=== PATIENT | female | born 1935 | race Caucasian/White ===

== ENCOUNTER 2022-11-15 18:20 | Emergency (ER) | payer MEDICARE, BC ==
[~2022-11-15] VITALS: Ht 149.9 cm; Wt 52.2 kg
[2022-11-15] MEDS ORDERED: EUTHYROX75 MC1 PO (18:42)
[2022-11-15] MEDS ORDERED: AMLODIPINE BESYL5 MG PO (18:42)
[2022-11-15] MEDS ORDERED: ALBU90OI INH (18:43)
[2022-11-15] MEDS ORDERED: METO100ER PO (18:43)
[2022-11-15 21:18] LABS: Source, Urine Clean Catch
[2022-11-15 21:21] LABS: Appearance, Urine Clear (Clear); Bilirubin, Urine Neg (Neg); Blood, Urine Neg (Neg); Glucose Qualitative, Urine Neg (Neg); Ketones, Urine Neg (Neg); Leukocyte Esterase, Urine Neg (Neg); Nitrite, Urine Neg (Neg); Protein, Urine Neg (Neg); Urobilinogen, Urine NORM (Normal); pH, Urine 6.5 (5.0-8.0)
[2022-11-15 21:24] LABS: Color, Urine Pale Yellow (P-Yellow)
[2022-11-15] MEDS ORDERED: ASPI81CH PO (21:52)
== END 2022-11-15 22:05 | disposition home or self-care (01) ==
LOC: ER 18:20
PROVIDERS: Emergency Medicine
DX: G45.9 Transient cerebral ischemic attack, unspecified (principal); I10 Essential (primary) hypertension; E03.9 Hypothyroidism, unspecified; Z79.899 Other long term (current) drug therapy
CPT/HCPCS: 70450; 81003; A9270

== ENCOUNTER 2024-04-21 20:09 | Inpatient (IN) | payer MEDICARE, BC ==
[~2024-04-21] VITALS: Ht 160 cm; Wt 42.6 kg
[~2024-04-21 20:09] MED LIST: ALBU90OI INH; AMLODIPINE BESYL5 MG PO; ASPI81CH PO; EUTHYROX75 MC1 PO; METO100ER PO
[2024-04-21 21:26] LABS: BASOPHILS ABSOLUTE AUTO 0.04 K/mm3 (0.00-0.23); BASOPHILS PERCENT AUTO 0 % (0-2); EOSINOPHILS ABSOLUTE AUTO 0.07 K/mm3 (0.00-0.68); EOSINOPHILS PERCENT AUTO 1 % (0-6); Hematocrit 40.4 % (33.0-51.0); Hemoglobin 13.1 g/dL (11.5-16.0); IMMATURE GRAN ABSOLUTE AUTO 0.06 K/mm3 (0.00-0.10); IMMATURE GRAN PERCENT AUTO 1 % (0-1); LYMPHOCYTES ABSOLUTE AUTO 0.87 K/mm3 (0.84-5.20); LYMPHOCYTES PERCENT AUTO 9 % (21-46); MONOCYTES ABSOLUTE AUTO 1.98 K/mm3 (0.16-1.47); MONOCYTES PERCENT AUTO 20 % (4-13); Mean Corpuscular HGB 27.9 pg (26.0-34.0); Mean Corpuscular HGB Conc 32.4 g/dL (31.5-36.5); Mean Corpuscular Volume 86 fL (80-100); Mean Platelet Volume 10.6 fL (9.1-12.4); NEUTROPHILS ABSOLUTE AUTO 6.86 K/mm3 (1.96-9.15); NEUTROPHILS PERCENT AUTO 70 % (41-73); Platelet Count 236 K/mm3 (150-400); RDW Coefficient Variation 13.4 % (11.7-14.2); RDW Standard Deviation 42.1 fL (35.1-46.3); Red Blood Cell Count 4.69 M/mm3 (3.80-5.20); White Blood Cell Count 9.88 K/mm3 (4.00-11.30)
[2024-04-21 21:46] LABS: Albumin, Blood 3.2 g/dL (3.4-5.0); Albumin/Globulin Ratio 0.7 (0.8-1.8); Calcium, Blood 10.1 mg/dL (8.5-10.1); Creatinine, Blood 1.27 mg/dL (0.40-1.00); Globulin, Blood 4.3 g/dL (2.2-4.0); Potassium, Blood 3.5 mmol/L (3.5-5.5); Total Protein, Blood 7.5 g/dL (6.4-8.2)
[2024-04-21] MEDS ORDERED: FentaNYL Citrate 50 MCG/ML 2 ML Injection IV PRN (21:50)
[2024-04-21] MEDS ORDERED: Diphth,Pertuss(Acell),Tet Vac 0.5 ML VIAL IM ONE (21:50)
[2024-04-21] MEDS ORDERED: Azithromycin 500 MG in NS 250 ML IV ONE (22:45)
[2024-04-21] MEDS ORDERED: CefTRIAXone Sodium 1,000 MG in NS 50 ML IV ONE (22:45)
[2024-04-22 01:47] LABS: Source, Urine Straight Cath
[2024-04-22 02:01] LABS: Bilirubin, Urine Neg (Neg); Blood, Urine 3+ (Neg); Glucose Qualitative, Urine Neg (Neg); Ketones, Urine 2+ (Neg); Leukocyte Esterase, Urine 1+ (Neg); Nitrite, Urine Neg (Neg); Protein, Urine 3+ (Neg); Urobilinogen, Urine 1+ (Normal)
[2024-04-22] MEDS ORDERED: OxyCODONE HCL 5 MG TAB PO PRN (02:10)
[2024-04-22] MEDS ORDERED: Acetaminophen 325 MG TABLET PO PRN (02:10)
[2024-04-22] MEDS ORDERED: Naloxone HCl 0.4MG / ML 1ML Vial IV PRN (02:10)
[2024-04-22] MEDS ORDERED: Ondansetron HCl 2 MG / ML 2ML Vial IV PRN (02:10)
[2024-04-22] MEDS ORDERED: FentaNYL Citrate 50 MCG/ML 2 ML Injection IV PRN (02:15)
[2024-04-22 02:22] LABS: Appearance, Urine Clear (Clear); Color, Urine Yellow (P-Yellow)
[2024-04-22 02:25] LABS: Bacteria Mod /hpf; Red Blood Cells, Urine 0-2 /hpf (0-2); Squamous Epithelial Cells Few /hpf (Few); Uric Acid Crystals Few /hpf; White Blood Cells, Urine 0-2 /hpf (0-5)
[2024-04-22] MEDS ORDERED: Lactated Ringer's 1,000 ML IV SCH (03:00)
[2024-04-22 05:14] LABS: BASOPHILS ABSOLUTE AUTO 0.03 K/mm3 (0.00-0.23); BASOPHILS PERCENT AUTO 0 % (0-2); EOSINOPHILS ABSOLUTE AUTO 0.01 K/mm3 (0.00-0.68); EOSINOPHILS PERCENT AUTO 0 % (0-6); Hematocrit 35.3 % (33.0-51.0); Hemoglobin 11.4 g/dL (11.5-16.0); IMMATURE GRAN ABSOLUTE AUTO 0.12 K/mm3 (0.00-0.10); IMMATURE GRAN PERCENT AUTO 1 % (0-1); LYMPHOCYTES ABSOLUTE AUTO 0.54 K/mm3 (0.84-5.20); LYMPHOCYTES PERCENT AUTO 5 % (21-46); MONOCYTES ABSOLUTE AUTO 1.67 K/mm3 (0.16-1.47); MONOCYTES PERCENT AUTO 16 % (4-13); Mean Corpuscular HGB 28.2 pg (26.0-34.0); Mean Corpuscular HGB Conc 32.3 g/dL (31.5-36.5); Mean Corpuscular Volume 87 fL (80-100); Mean Platelet Volume 10.5 fL (9.1-12.4); NEUTROPHILS ABSOLUTE AUTO 8.01 K/mm3 (1.96-9.15); NEUTROPHILS PERCENT AUTO 77 % (41-73); Platelet Count 198 K/mm3 (150-400); RDW Coefficient Variation 13.4 % (11.7-14.2); RDW Standard Deviation 42.8 fL (35.1-46.3); Red Blood Cell Count 4.04 M/mm3 (3.80-5.20); White Blood Cell Count 10.38 K/mm3 (4.00-11.30)
[2024-04-22 05:28] LABS: International Normalized Ratio 1.02; Prothrombin Time Results 10.9 Sec (9.7-11.5)
[2024-04-22 05:36] LABS: Albumin, Blood 2.8 g/dL (3.4-5.0); Albumin/Globulin Ratio 0.7 (0.8-1.8); Bilirubin, Total 0.7 mg/dL (0.1-1.0); Bun/Creatinine Ratio 25.4 (12.0-20.0); Calcium, Blood 9.3 mg/dL (8.5-10.1); Creatinine, Blood 1.18 mg/dL (0.40-1.00); Magnesium, Blood 2.1 mg/dL (1.6-2.4); Potassium, Blood 3.4 mmol/L (3.5-5.5); Total Protein, Blood 6.8 g/dL (6.4-8.2)
[2024-04-22] MEDS ORDERED: Lactated Ringer's 1,000 ML IV ONE (05:39)
[2024-04-22] MEDS ORDERED: Docusate Sodium 100 MG Cap PO SCH (09:00)
[2024-04-22] MEDS ORDERED: Vitamin D1000 UNI1 PO (14:09)
[2024-04-22] MEDS ORDERED: OLME20 PO (14:14)
[2024-04-22] MEDS ORDERED: EUTHYROX50 MCG PO (14:16)
[2024-04-22 14:19] VITALS: BP 182/64
--- NOTE | 2024-04-22 15:28 | NUR ---
DNR/SELECTIVE TREATMENT - GOALS OF CARE CONVERSATION REVIEWED CPR VS DNR AND ALL MEDICAL INTERVENTION CATEGORIES WITH PT'S DTR/CLAUDIA, DOLORES AND TODD, DTR AND TODD REQUEST PT BE DNR WITH SELECTIVE MEDICAL INTERVENTIONS. NEW POLST FILLED OUT AND SIGNED BY PROVIDER. VERBAL ORDER RCV'D FROM PROVIDER TO CHANGE CODE STATUS FROM FULL TO DNR. CODE STATUS CHANGE ORDER PLACED ACCORDINGLY. FAMILY AND PROVIDER ASKED TO RESUME GOALS OF CARE CONVERSATION AFTER PT IS ASSESSED BY ORTHOPEDIST. PROVIDED FAMILY WITH BOOK 'HARD CHOICES FOR LOVING PEOPLE' FOR REVIEW. PC TO REMAIN AVAILABLE.
[2024-04-22] MEDS ORDERED: Metoprolol Succinate 50 MG TABCR PO SCH (17:40)
[2024-04-22] MEDS ORDERED: Albuterol HFA200 ACT/6.7 GM INH INH PRN (18:05)
[2024-04-22 18:06] VITALS: BP 176/79
[2024-04-22] MEDS ORDERED: NS 250 ML IV PRN (19:30)
--- NOTE | 2024-04-22 19:36 | NUR ---
SHIFT SUMMARY ORTHO CONSULT COMPLETED, PLAN FOR SURGERY TOMORROW. NPO AFTER MIDNIGHT. PT RESTING T/O SHIFT, NOT INTRESTED IN PO INTAKE. FAMILY AT BEDSIDE. XRAY COMPLETE. BED ALARM ON. CALL LIGHT IN REACH. REPORT GIVEN TO ONCOMING RN
[2024-04-22 20:16] VITALS: BP 165/47
[2024-04-22] MEDS ORDERED: CefTRIAXone Sodium 1,000 MG in NS 100 ML IV SCH (21:00)
[2024-04-23] VITALS (20 sets, daily range): BP systolic 104–185; BP diastolic 44–89
[2024-04-23 04:13] LABS: BASOPHILS ABSOLUTE AUTO 0.03 K/mm3 (0.00-0.23); BASOPHILS PERCENT AUTO 0 % (0-2); EOSINOPHILS ABSOLUTE AUTO 0.08 K/mm3 (0.00-0.68); EOSINOPHILS PERCENT AUTO 1 % (0-6); Hematocrit 30.4 % (33.0-51.0); Hemoglobin 9.8 g/dL (11.5-16.0); IMMATURE GRAN ABSOLUTE AUTO 0.13 K/mm3 (0.00-0.10); IMMATURE GRAN PERCENT AUTO 2 % (0-1); LYMPHOCYTES ABSOLUTE AUTO 1.33 K/mm3 (0.84-5.20); LYMPHOCYTES PERCENT AUTO 17 % (21-46); MONOCYTES ABSOLUTE AUTO 1.21 K/mm3 (0.16-1.47); MONOCYTES PERCENT AUTO 15 % (4-13); Mean Corpuscular HGB Conc 32.2 g/dL (31.5-36.5); Mean Corpuscular Volume 87 fL (80-100); Mean Platelet Volume 9.9 fL (9.1-12.4); NEUTROPHILS ABSOLUTE AUTO 5.11 K/mm3 (1.96-9.15); NEUTROPHILS PERCENT AUTO 65 % (41-73); Platelet Count 202 K/mm3 (150-400); RDW Coefficient Variation 13.7 % (11.7-14.2); RDW Standard Deviation 43.5 fL (35.1-46.3); White Blood Cell Count 7.89 K/mm3 (4.00-11.30)
[2024-04-23] MEDS ORDERED: HydrALAZINE HCl 20 MG / ML 1ML Vial IV PRN (04:55)
[2024-04-23 04:57] LABS: Bun/Creatinine Ratio 23.1 (12.0-20.0); Calcium, Blood 9.3 mg/dL (8.5-10.1); Creatinine, Blood 1.17 mg/dL (0.40-1.00)
--- NOTE | 2024-04-23 05:33 | NUR ---
SHIFT SUMMARY VSS, HTN NOTED. OBTAINED PRN MEDICATION, AWAITING BP RECHECK. PT SLEPT WELL T/O THE NIGHT. INCONTINENT VOIDS NOTED, MINIMAL OUTPUT IN THE PUREWICK. PT MEDICATED WITH TYLENOL FOR PAIN. IVF INFUSING PER EMAR. PT HAS BEEN NPO. SURGICAL [place] COMPLETE. PLAN FOR SURGERY TODAY.
--- NOTE | 2024-04-23 05:59 | NUR ---
DOCTOR COMMUNICATION CALL PLACED TO HOSPITALIST DUE TO FINDING THE PATIENT WITH ACUTE SOB. IT WAS NOTED THE PATIENT WAS LAYING ON HER BACK AND HER O2 TUBING HAD BEEN PULLED OFF. THE PATIENT WAS VISIBLY RED IN THE FACE AND STRUGGLING TO BREATHE. THE PT WAS IMMEDIATELY SAT UP, O2 TUBING, SENIOR JAVA UI DEVELOPER, AND RESPIRATORY THERAPY CALLED. DR CAMACHO STATED HE WOULD BE PLACING ORDERS IN AND ROUNDING ON THE PATIENT SHORTLY.
[2024-04-23] MEDS ORDERED: Levothyroxine Sodium 0.05 MG Tab PO SCH (06:00)
[2024-04-23] MEDS ORDERED: Albuterol 2.5 MG/3 ML VIAL INH PRN (06:25)
[2024-04-23 06:28] LABS: Base Excess Venous 3.7 mmol/L; PCO2 Venous 52.1 mmHg (38-42); pH Blood Venous 7.36 (7.34-7.37)
[2024-04-23] MEDS ORDERED: Tranexamic Acid 100 ML IV SCH (07:35)
[2024-04-23] MEDS ORDERED: CeFAZolin Sodium 2,000 MG in NS 100 ML IV SCH (07:35)
[2024-04-23] MEDS ORDERED: Losartan Potassium 50 MG Tab PO SCH (09:00)
[2024-04-23] MEDS ORDERED: Azithromycin 500 MG in NS 250 ML IV SCH (09:00)
[2024-04-23] MEDS ORDERED: Cholecalciferol 1000 Unit Tablet (=25MCG) PO SCH (09:00)
[2024-04-23] MEDS ORDERED: Potassium Chloride 20 MEQ TabCR PO ONE (11:00)
[2024-04-23] MEDS ORDERED: Lactated Ringer's 1,000 ML IV SCH (11:35)
--- NOTE | 2024-04-23 12:13 | NUR ---
SUPPORTIVE VISIT WITH PT AND FAMILY. THIS MORNING GUSTAVO IS ALERT AND ANSWERING SIMPLE QUESTIONS. SHE IS INTERACTING WITH HER DAUGHTER AND SON-IN-LAW. DTR, DOLORES EXPLAINED TO PT THAT SHE WAS GOING TO HAVE SURGERY TO REPAIR HER HIP TODAY. PT NODED YES AND SAID, "NPO". COMPLETED POLST PLACED ON CHART, SENT TO MEDICAL RECORDS, FAXED TO [place] POLST REGISTRY AND COPY TO PT'S DTR. PC TO REMAIN AVAILABLE NEEDED.
[2024-04-23] MEDS ORDERED: Bupivacaine 0.75%/Dext 8.25% 2 ML Amp IT ONE (12:29)
[2024-04-23] MEDS ORDERED: propofoL 0 ML IV ONE (12:35)
[2024-04-23] MEDS ORDERED: FentaNYL Citrate 50 MCG/ML 2 ML Injection ONE (12:35)
[2024-04-23] MEDS ORDERED: Ondansetron HCl 2 MG / ML 2ML Vial ONE (13:13)
[2024-04-23] MEDS ORDERED: Dexamethasone Sod Phos 10 MG/ML 1ML VIAL ONE (13:13)
--- NOTE | 2024-04-23 14:46 | NUR ---
PACU TO 219 PT RETURNED FROM PACU TO HER ROOM 219, [address] TO LLE, SMALL AMT OF SENG NOTED ON INFERIOR AQUACELL ROUGHLY THE SIZE OF A AMADO. PT AWAKE, EYES OPEN AND RESPONDING TO QUESTIONS APPROPRIATELY. MEPILEX PLACED ON HER COCCYX TO PAD BLANCHABLE REDNESS. PUREWICK PLACED.
--- NOTE | 2024-04-23 18:40 | NUR ---
SHIFT SUMMARY POD0 L HIP NAAILING, A/OX4, VSS THOUOGH BP HAS BEEN A BIT ELEVATED AND WAS MEDICATED WITH APRESOLINE PER EMAR, SPINAL ANESTHESIA, BS AND SC IN PACU PER PACU REPORT. NO ACUTE EVENTS THIS SHIFT, CALL LIGHT IN REACH.
[2024-04-24] VITALS: BP 164/55
[2024-04-24] MEDS ORDERED: CeFAZolin Sodium 1,000 MG in NS 50 ML IV SCH (01:00)
[2024-04-24 03:34] VITALS: BP 162/62
--- NOTE | 2024-04-24 04:09 | NUR ---
WOUND MANAGEMENT THIS RN REMOVED THE PTS BANDAGE ON L FORARM D/T NEEDING TO PLACE A NEW IV. SKIN TEAR FROM ADMISSION NOTED TO BE PALM SIZE. BRIGHT RED WOUND BED W/ SLIGHT PURULENT EXUDATE NOTED. TWO FLAPS OF SKIN WERE LAYED OVER THE WOUND BED WHEN DRESSED @ ADMISSION. THESE SKIN LAYERS ARE NOT ADHERING TO THE WOUND BED AND PEELED AWAY FROM THE WOUND WHEN ORIGINAL DRESSING WAS REMOVED. THESE SKIN FLAPS WERE PLACED BACK ON THE WOUND, BUT PARTS OF THE SKIN HAS COMPLETELY DRIED AND SHRIVLED. PT REPORTS THIS WOUND IS VERY PAINFUL AND DID NOT WANT EXTENSIVE CLEANING PERFORMED. WOUND REDRESSED WITH XEROFORM PATROLLIUM GAUZE, NONADHERANT PADS, AND KRILLEX GAUZE. DISCUSSED WITH PRIMARY RN, PLAN TO DISCUSS WITH ONCOMING SHIFT.
[2024-04-24] MEDS ORDERED: Lactated Ringer's 1,000 ML IV SCH (04:35)
--- NOTE | 2024-04-24 04:42 | NUR ---
SHIFT SUMMARY PT AWAKE FOR MOST OF SHIFT. DENIES ANY PAIN. TOLERATING SMALL AMOUNTS OF WATER. PT HAS NOT BEEN OOB. PT ABLE TO WIGGLE TOES AND MOVE LE AROUND THE BED. X2 AQUACEL TO L HIP, QUARTER SIZED DRAINAGE SPOT ON LOWER AQUACEL, OTHERWISE C/D/I. PACU AT AROUND 1400 PT WAS STRAIGHT CATHED AND 550 MLS CAME OUT, PT HAS NOT VOIDED SINCE. BLADDER SCANNED AROUND 0400 AND THE AMOUNT WAS 258ML IN THE BLADDER. REACHED OUT TO CAR SALESPERSON DR AND GOT ORDERS FOR FLUIDS TO RUN. VSS, NO OTHER COCERNS AT THIS TIME, CALL LIGHT WITHIN REACH
[2024-04-24 04:51] LABS: BASOPHILS ABSOLUTE AUTO 0.03 K/mm3 (0.00-0.23); BASOPHILS PERCENT AUTO 0 % (0-2); EOSINOPHILS PERCENT AUTO 0 % (0-6); Hematocrit 30.5 % (33.0-51.0); Hemoglobin 9.8 g/dL (11.5-16.0); IMMATURE GRAN ABSOLUTE AUTO 0.39 K/mm3 (0.00-0.10); IMMATURE GRAN PERCENT AUTO 4 % (0-1); LYMPHOCYTES ABSOLUTE AUTO 0.85 K/mm3 (0.84-5.20); LYMPHOCYTES PERCENT AUTO 8 % (21-46); MONOCYTES ABSOLUTE AUTO 1.14 K/mm3 (0.16-1.47); MONOCYTES PERCENT AUTO 11 % (4-13); Mean Corpuscular HGB 28.2 pg (26.0-34.0); Mean Corpuscular HGB Conc 32.1 g/dL (31.5-36.5); Mean Corpuscular Volume 88 fL (80-100); Mean Platelet Volume 10.3 fL (9.1-12.4); NEUTROPHILS ABSOLUTE AUTO 8.16 K/mm3 (1.96-9.15); NEUTROPHILS PERCENT AUTO 77 % (41-73); Platelet Count 230 K/mm3 (150-400); RDW Coefficient Variation 13.7 % (11.7-14.2); RDW Standard Deviation 43.8 fL (35.1-46.3); Red Blood Cell Count 3.48 M/mm3 (3.80-5.20); White Blood Cell Count 10.57 K/mm3 (4.00-11.30)
[2024-04-24 05:19] LABS: Albumin, Blood 2.5 g/dL (3.4-5.0); Albumin/Globulin Ratio 0.7 (0.8-1.8); Bilirubin, Total 0.4 mg/dL (0.1-1.0); Bun/Creatinine Ratio 22.8 (12.0-20.0); Calcium, Blood 9.2 mg/dL (8.5-10.1); Creatinine, Blood 1.23 mg/dL (0.40-1.00); Globulin, Blood 3.4 g/dL (2.2-4.0); Potassium, Blood 3.7 mmol/L (3.5-5.5); Total Protein, Blood 5.9 g/dL (6.4-8.2)
[2024-04-24 07:07] VITALS: BP 142/54
[2024-04-24] MEDS ORDERED: Metoprolol Tartrate 50 MG Tab PO SCH (13:00)
[2024-04-24 14:37] VITALS: BP 143/52
[2024-04-24] MEDS ORDERED: Lidocaine HCl 1% 2 ML SDV INFIL ONE (15:40)
--- NOTE | 2024-04-24 16:20 | NUR ---
SHIFT SUMMARY PATIENT IS AOX2. ABLE TO FOLLOW SIMPLE COMMANDS. PARTICIPATED WITH THERAPY AND WAS 2 ASSIST TO CHAIR/BSC. PATIENT IS INCONT. WITH ATTENDS IN PLACE, VOIDING. DR. LOW WAS CONSULTED FOR WOUND ON LEFT FOREARM. ARM WAS SUTURED AND NEW DRESSING WAS PLACED. LEFT HIP DRESSIGN WITH AQUACEL HAS QUARER SIZED DRAINAGE OTHER SITE IS C/D/I. PATIENT DENIES PAIN. SWALLOW EVAL THIS AM AND ORDER FOR THICKEN LIQUIDS NO STRAW AND MINCED MOIST DIET PLACED. PATIENT TAKES MEDS CRUSHED WITH APPLESAUCE. SWALLOW PRECAUTIONS ARE IN PLACE. FAMILY IN ROOM THROUGHOUT DAY. AWAITING A SAFE DISCHARGE PLAN. CALL LIGHT IS IN REACH.
[2024-04-24 20:27] VITALS: BP 159/67
[2024-04-25] VITALS (8 sets, daily range): BP systolic 126–184; BP diastolic 44–71
--- NOTE | 2024-04-25 04:44 | NUR ---
SHIFT SUMMARY PT IS ALERT, ORIENTED TO SELF ONLY. ANSWERS W/ MOSTLY YES OR NO RESPONSES, ABLE TO FOLLOW COMMANDS, COOPERATE W/ CARE. BED ALARM ON. DRESSINGS ON L HIP C/D/I. PT HAVING INC VOIDS IN ATTENDS. PT IS NOT USING CALL LIGHT. REPOSITIONED THROUGHOUT SHIFT, MEPILEX ON COCCYX. PT ABLE TO TAKE PILLS CRUSHED IN PUDDING. O2 SATS >92% ON 2LNC, PT ENCOURAGED TO DB&C. ABX GIVEN PER EMAR. CALL LIGHT IN REACH.
[2024-04-25 05:43] LABS: Bun/Creatinine Ratio 24.1 (12.0-20.0); Calcium, Blood 8.9 mg/dL (8.5-10.1); Creatinine, Blood 1.12 mg/dL (0.40-1.00); Potassium, Blood 3.4 mmol/L (3.5-5.5)
[2024-04-25 06:12] LABS: Hematocrit 31.1 % (33.0-51.0); Hemoglobin 10.1 g/dL (11.5-16.0); Mean Corpuscular HGB 27.9 pg (26.0-34.0); Mean Corpuscular HGB Conc 32.5 g/dL (31.5-36.5); Mean Corpuscular Volume 86 fL (80-100); Platelet Count 223 K/mm3 (150-400); RDW Coefficient Variation 13.7 % (11.7-14.2); RDW Standard Deviation 42.8 fL (35.1-46.3); Red Blood Cell Count 3.62 M/mm3 (3.80-5.20); White Blood Cell Count 11.38 K/mm3 (4.00-11.30)
[2024-04-25 06:43] LABS: BAND PERCENT MAN 8 % (0-8); BASOPHILS PERCENT MAN 0 % (0-2); EOSINOPHILS ABSOLUTE MAN 0.34 K/mm3 (0.00-0.68); EOSINOPHILS PERCENT MAN 3 % (0-6); LYMPHOCYTES ABSOLUTE MAN 1.82 K/mm3 (0.84-5.20); LYMPHOCYTES PERCENT MAN 16 % (21-46); MONOCYTES ABSOLUTE MAN 0.68 K/mm3 (0.16-1.47); MONOCYTES PERCENT MAN 6 % (4-13); NEUTROPHILS ABSOLUTE MAN 8.53 K/mm3 (1.96-9.15); SEG NEUTROPHILS PERCENT MAN 67 % (41-73); TOTAL CELLS COUNTED 100
--- NOTE | 2024-04-25 08:45 | NUR ---
O2 DECREASED FROM 1L TO OFF. PT DESATURATED TO 84% ON RA. PT BRIEFLY PLACED ON 4L O2 TO INCREASE O2 SATURATION TO >90%. O2 THEN DECREASED TO 0.5L, PT MAINTAINING >90%.
--- NOTE | 2024-04-25 09:53 | NUR ---
DR. SUAREZ ROUNDED ON PT AT APPROXIMATELY 0830.
--- NOTE | 2024-04-25 20:04 | NUR ---
SHIFT SUMMARY PT IS POD#3 FROM L HIP PINNING. PT HAS EXPRESSIVE APHASIA AND HAS BEEN CONFUSED T/O THE DAY. PAIN MANAGED WITH TYLENOL. PT IS A 2 MAX ASSIST FOR TRANSFERS. PT REQUIRES ASSISTANCE WITH MEALS. FAMILY HAS BEEN PRESENT AND SUPPORTIVE T/O THE DAY. ATTENDS IN PLACE FOR INCONTINENCE. BEDSIDE REPORT GIVEN TO CARLITO VINSON.
[2024-04-26 04:23] LABS: Hemoglobin 8.9 g/dL (11.5-16.0); Mean Corpuscular HGB 27.9 pg (26.0-34.0); Mean Corpuscular HGB Conc 31.8 g/dL (31.5-36.5); Mean Corpuscular Volume 88 fL (80-100); Platelet Count 222 K/mm3 (150-400); RDW Coefficient Variation 13.9 % (11.7-14.2); RDW Standard Deviation 44.1 fL (35.1-46.3); Red Blood Cell Count 3.19 M/mm3 (3.80-5.20)
[2024-04-26 04:39] LABS: Bun/Creatinine Ratio 20.6 (12.0-20.0); Calcium, Blood 8.9 mg/dL (8.5-10.1); Creatinine, Blood 1.26 mg/dL (0.40-1.00); Potassium, Blood 3.3 mmol/L (3.5-5.5)
[2024-04-26 04:51] LABS: BAND PERCENT MAN 4 % (0-8); BASOPHILS PERCENT MAN 0 % (0-2); EOSINOPHILS PERCENT MAN 0 % (0-6); LYMPHOCYTES PERCENT MAN 12 % (21-46); MONOCYTES PERCENT MAN 12 % (4-13); MYELOCYTE ABSOLUTE MAN 0.27 K/mm3 (0.00-0.00); MYELOCYTE PERCENT MAN 3 % (0-0); NEUTROPHILS ABSOLUTE MAN 6.71 K/mm3 (1.96-9.15); SEG NEUTROPHILS PERCENT MAN 69 % (41-73); TOTAL CELLS COUNTED 100
--- NOTE | 2024-04-26 05:38 | NUR ---
SHIFT SUMMARY PT IS POD3 FOR L HIP REPAIR. DRESSINGS C/D/I, SMALL AMOUNT OF DRAINAGE PRESENT ON BOTH AQUACELS. PT STATES PAIN IS TOLERABLE, ONLY MEDICATED W/ TYLENOL. 2 MAX ASST PIVOT FROM RECLINER TO BED. PT HAVING INC VOIDS. NEW MEPILEX PLACED ON COCCYX, PT REPOSITIONED THROUGHOUT THE NIGHT. DRESSING CHANGED ON L ARM. VSS. 0.5L NC, O2 SATS 98-100%. CONT BIOX IN PLACE. PT CONTINUES TO HAVE WEAK, UNPRODUCTIVE COUGH. PT IS CONFUSED AND RESPONDS IN SHORT SENTENCES OR ONE WORD ANSWERS, HOWEVER IS ABLE TO FOLLOW COMMANDS. PT DOES NOT USE CALL LIGHT. BED ALARM ON. POSSIBLE DC TODAY. ABX GIVEN ORDERED.
--- NOTE | 2024-04-26 06:15 | NUR ---
CHANGED DRESSING TO L ARM SKIN TEAR.
[2024-04-26 06:22] VITALS: BP 155/52
[2024-04-26 07:14] VITALS: BP 167/63
[2024-04-26] MEDS ORDERED: Potassium Chloride 20 MEQ TabCR PO ONE (08:00)
--- NOTE | 2024-04-26 09:30 | NUR ---
DR. SUAREZ ROUNDED THIS AM DISCUSSED DECREASED KIDNEY FUNCTION AND LOSS OF IV ACCESS WITH DR. SUAREZ. PER DR. SUAREZ REPLACE IV FOR CONTINUED IV ABX THERAPY AND GENTLE IV HYDRATION. PT HAS BEEN OFFERED/ASSISTED WITH FOOD/FLUIDS BUT HAS HAD LOW INTAKE.
[2024-04-26] MEDS ORDERED: D5W-1/2NS 500 ML IV SCH (11:10)
[2024-04-26 15:06] VITALS: BP 161/60
[2024-04-26 19:26] VITALS: BP 176/63
--- NOTE | 2024-04-26 19:53 | NUR ---
SHIFT SUMMARY PAIN HAS BEEN MANAGED WITH TYLENOL T/O THE DAY. PT IS A 2 PERSON ASSIST FOR TRANSFERS. SHE HAS BEEN INCONTINENT OF BOWEL AND BLADDER TODAY, ATTENDS IN PLACE. PT HAS HAD LOW PO INTAKE AND HAS BEEN ASSISTED WITH MEALS. PT REPORTED SHORTNESS OF BREATH AT SHIFT CHANGE, LUNG SOUNDS CRACKLY T/O. DR. COSTA NOTIFIED OF SOB, CHEST XRAY ORDERED. PT SALINE LOCKED. BEDSIDE REPORT GIVEN TO CARLITO VINSON.
[2024-04-27 01:43] VITALS: BP 160/67
--- NOTE | 2024-04-27 04:23 | NUR ---
SHIFT SUMMARY PT ABLE TO REST MOST OF SHIFT. DRESSINGS ON L HIP REMAIN C/D/I. CHANGED DRESSING ON L ARM. PT IS LESS CONFUSED THIS SHIFT, ABLE TO RESPOND APPROPRIATELY MOST OF THE TIME AND MAKE NEEDS KNOWN. O2 SATS 100% ON 0.5LNC. CRACKLES PRESENT IN UPPER LUNG MADRIGAL, PT ENCOURAGED TO DB&C. CHEST XRAY TAKEN AT START OF SHIFT, RESULTS NOT YET RECIEVED. PT DENIES SOB/CHEST PAIN. VSS. PT GIVEN SCHEDULED ANTIHYPERTENSIVES. SALINE LOCKED PER ORDERS. BED ALARM ON, PT HAVING BOTH INC VOIDS AND BMS. ATTENDS IN PLACE. USING CALL LIGHT INTERMITTENTLY.
[2024-04-27 04:26] VITALS: BP 178/63
[2024-04-27 04:26] LABS: Hematocrit 29.5 % (33.0-51.0); Hemoglobin 9.2 g/dL (11.5-16.0); Mean Corpuscular HGB 27.7 pg (26.0-34.0); Mean Corpuscular HGB Conc 31.2 g/dL (31.5-36.5); Mean Corpuscular Volume 89 fL (80-100); Mean Platelet Volume 9.6 fL (9.1-12.4); Platelet Count 228 K/mm3 (150-400); RDW Coefficient Variation 13.9 % (11.7-14.2); Red Blood Cell Count 3.32 M/mm3 (3.80-5.20)
[2024-04-27 04:43] LABS: Bun/Creatinine Ratio 19.1 (12.0-20.0); Calcium, Blood 8.9 mg/dL (8.5-10.1); Creatinine, Blood 1.15 mg/dL (0.40-1.00); Potassium, Blood 3.8 mmol/L (3.5-5.5)
[2024-04-27 04:44] LABS: BAND PERCENT MAN 1 % (0-8); BASOPHILS PERCENT MAN 0 % (0-2); EOSINOPHILS PERCENT MAN 1 % (0-6); LYMPHOCYTES ABSOLUTE MAN 1.71 K/mm3 (0.84-5.20); LYMPHOCYTES PERCENT MAN 17 % (21-46); METAMYELOCYTE PERCENT MAN 5 % (0-0); MONOCYTES ABSOLUTE MAN 2.12 K/mm3 (0.16-1.47); MONOCYTES PERCENT MAN 21 % (4-13); MYELOCYTE PERCENT MAN 2 % (0-0); NEUTROPHILS ABSOLUTE MAN 5.45 K/mm3 (1.96-9.15); SEG NEUTROPHILS PERCENT MAN 53 % (41-73); TOTAL CELLS COUNTED 100
[2024-04-27 05:36] VITALS: BP 141/53
[2024-04-27 07:16] VITALS: BP 148/63
--- NOTE | 2024-04-27 12:13 | NUR ---
DISCHARGED PATIENT DISCHARGED TO [facility], TRANSPORTED VIA WHEELCHAIR. THIS RN ATTEMPTED TO CALL REPORT AND WAS TOLD [facility] WILL CALL BACK WHEN ABLE TO. PATIENT LEAVES WITH DISCHARGE PACKET, IV TAKEN OUT, AND ALL BELONGINGS.
== END 2024-04-27 12:15 | disposition home or self-care (01) | DRG 480 ==
LOC: ER 20:09 → ERHOLD 20:10 → SURS 04-22 12:54
PROVIDERS: Emergency Medicine; Internal Medicine; Orthopaedic Surgery Sports Medicine; ADMIT Student in an Organized Health Care Education/Training Program
PROC: 0QH736Z Insertion of Intramedullary Internal Fixation Device into Left Upper Femur, Percutaneous Approach (ICD-10-PCS; principal; 2024-04-23 12:30)
PROC: 0HQEXZZ Repair Left Lower Arm Skin, External Approach (ICD-10-PCS; 2024-04-24)
DX: S72.142A Displaced intertrochanteric fracture of left femur, initial encounter for closed fracture (principal); J15.7 Pneumonia due to Mycoplasma pneumoniae; J96.01 Acute respiratory failure with hypoxia; J18.9 Pneumonia, unspecified organism; N39.0 Urinary tract infection, site not specified; S51.812A Laceration without foreign body of left forearm, initial encounter; R13.10 Dysphagia, unspecified; I25.10 Atherosclerotic heart disease of native coronary artery without angina pectoris; Z66 Do not resuscitate; N18.30 Chronic kidney disease, stage 3 unspecified; F03.90 Unspecified dementia, unspecified severity, without behavioral disturbance, psychotic disturbance, mood disturbance, and anxiety; I12.9 Hypertensive chronic kidney disease with stage 1 through stage 4 chronic kidney disease, or unspecified chronic kidney disease; E78.5 Hyperlipidemia, unspecified; E03.9 Hypothyroidism, unspecified; W18.30XA Fall on same level, unspecified, initial encounter; R53.83 Other fatigue; I65.29 Occlusion and stenosis of unspecified carotid artery; J44.9 Chronic obstructive pulmonary disease, unspecified; Z79.899 Other long term (current) drug therapy; Z79.890 Hormone replacement therapy; Z79.82 Long term (current) use of aspirin
CPT/HCPCS: 36415; 70450; 71045; 71046; 71110; 71260; 72125; 73502; 74177; 74230; 80048; 80053; 81001; 82803; 82947; 83605; 83735; 83880; 84145; 85025; 85610; 86850; 86900; 86901; 87040; 87086; 90471; 90715; 92526; 92610; 92611; 93005; 93010; 94640; 94664; 94762; 96361; 96365-59; 96367; 96375-59; 97110; 97162; 97165; 97530; 97535; 99285-25; A9270; C1713; C1769; G0378; J0360; J0456; J0690; J0696; J1100; J2405; J2704; J3010; J7042; J7050; J7120; Q9967

== ENCOUNTER 2024-05-15 08:44 | Inpatient (IN) | payer MEDICARE, BC ==
[~2024-05-15] VITALS: Ht 157.5 cm; Wt 46.3 kg
[2024-05-15] VITALS (22 sets, daily range): BP systolic 103–141; BP diastolic 38–80
[~2024-05-15 08:44] MED LIST changes: +EUTHYROX50 MCG PO; +OLME20 PO; +Vitamin D1000 UNI1 PO
[2024-05-15] MEDS ORDERED: CefTRIAXone Sodium 1,000 MG in NS 100 ML IV ONE (09:10)
[2024-05-15] MEDS ORDERED: Azithromycin 500 MG in NS 250 ML IV ONE (09:10)
[2024-05-15 09:18] LABS: BASOPHILS ABSOLUTE AUTO 0.01 K/mm3 (0.00-0.23); BASOPHILS PERCENT AUTO 0 % (0-2); EOSINOPHILS ABSOLUTE AUTO 0.04 K/mm3 (0.00-0.68); EOSINOPHILS PERCENT AUTO 1 % (0-6); Hematocrit 30.6 % (33.0-51.0); Hemoglobin 9.5 g/dL (11.5-16.0); IMMATURE GRAN ABSOLUTE AUTO 0.01 K/mm3 (0.00-0.10); IMMATURE GRAN PERCENT AUTO 0 % (0-1); LYMPHOCYTES ABSOLUTE AUTO 1.46 K/mm3 (0.84-5.20); LYMPHOCYTES PERCENT AUTO 23 % (21-46); MONOCYTES ABSOLUTE AUTO 0.87 K/mm3 (0.16-1.47); MONOCYTES PERCENT AUTO 14 % (4-13); Mean Corpuscular HGB 28.6 pg (26.0-34.0); Mean Corpuscular Volume 92 fL (80-100); Mean Platelet Volume 11.5 fL (9.1-12.4); NEUTROPHILS ABSOLUTE AUTO 3.98 K/mm3 (1.96-9.15); NEUTROPHILS PERCENT AUTO 62 % (41-73); Platelet Count 141 K/mm3 (150-400); RDW Coefficient Variation 15.9 % (11.7-14.2); RDW Standard Deviation 52.8 fL (35.1-46.3); Red Blood Cell Count 3.32 M/mm3 (3.80-5.20); White Blood Cell Count 6.37 K/mm3 (4.00-11.30)
[2024-05-15 09:32] LABS: Base Excess Venous 4.7 mmol/L; PCO2 Venous 51.3 mmHg (38-42); pH Blood Venous 7.38 (7.34-7.37)
[2024-05-15 09:38] LABS: Albumin, Blood 2.3 g/dL (3.4-5.0); Albumin/Globulin Ratio 0.9 (0.8-1.8); Bilirubin, Total 0.5 mg/dL (0.1-1.0); Bun/Creatinine Ratio 21.8 (12.0-20.0); Calcium, Blood 7.5 mg/dL (8.5-10.1); Creatinine, Blood 1.1 mg/dL (0.40-1.00); Globulin, Blood 2.7 g/dL (2.2-4.0); Potassium, Blood 3.6 mmol/L (3.5-5.5)
[2024-05-15 10:42] LABS: Anti-Xa UFH, PHA Monitoring <0.10 IU/mL; International Normalized Ratio 1.02; Prothrombin Time Results 10.9 Sec (9.7-11.5)
[2024-05-15] MEDS ORDERED: Dose Adjust by Pharmacy XX STA ×2 (10:58→18:18)
[2024-05-15] MEDS ORDERED: Heparin Sodium 5000 Units/ML 1ML MDV IV ONE (11:00)
[2024-05-15] MEDS ORDERED: Heparin Sodium,Porcine/0.5 NS 500 ML IV SCH (11:00)
[2024-05-15] MEDS ORDERED: OxyCODONE HCL 5 MG TAB PO PRN (14:00)
[2024-05-15] MEDS ORDERED: Ondansetron 4 MG TAB PO PRN (14:00)
[2024-05-15] MEDS ORDERED: FLU VACC TS2024-25(6MOS UP)/PF 45 MCG/0.5 ML SYRINGE IM SCH (14:05)
[2024-05-15] MEDS ORDERED: Acetaminophen 325 MG TABLET PO PRN (14:05)
[2024-05-15] MEDS ORDERED: Ondansetron HCl 2 MG / ML 2ML Vial IV PRN (14:05)
[2024-05-15] MEDS ORDERED: Albuterol 2.5 MG/3 ML VIAL INH PRN (14:15)
--- NOTE | 2024-05-15 15:20 | NUR ---
"Spiritual Care Attempted | Pt. request Upon receiving a referral, I attempted to visit. Pt. Pt. could not be roused. Will attempt later."
[2024-05-15] MEDS ORDERED: Piperacillin/Tazobactam Sod 3.375 GM in NS 100 ML IV SCH (16:00)
--- NOTE | 2024-05-15 16:33 | NUR ---
"Spiritual Care Visit | Family at bedside Pt. continues to not be responsive, but displays evidence of being at rest. Pts. Daughter and TODD are at bedside. faciliatted a lengthy life review, where aspects of the Pts. life and family are shared. Family verbalized gratitude for the spiritual care visit."
[2024-05-15] MEDS ORDERED: NS 250 ML IV PRN (16:35)
[2024-05-15] MEDS ORDERED: Ipratropium/Albuterol SulF 2.5-0.5MG/3 ML Amp INH SCH (16:35)
[2024-05-15 17:05] LABS: Adenovirus Not Detected (NOT DETECT); Bordetella pertussis Not Detected (NOT DETECT); Chlamydophila pneumoniae Not Detected (NOT DETECT); Coronavirus 229E Not Detected (NOT DETECT); Coronavirus HKU1 Not Detected (NOT DETECT); Coronavirus NL63 Not Detected (NOT DETECT); Coronavirus OC43 Not Detected (NOT DETECT); Human Metapneumovirus Not Detected (NOT DETECT); Human Rhinovirus/Enterovirus Not Detected (NOT DETECT); Influenza A/2009-H1 Not Detected (NOT DETECT); Influenza A/H1 Not Detected (NOT DETECT); Influenza A/H3 Not Detected (NOT DETECT); Influenza B Not Detected (NOT DETECT); Mycoplasma pneumoniae Not Detected (NOT DETECT); Parainfluenza Virus 1 Not Detected (NOT DETECT); Parainfluenza Virus 2 Not Detected (NOT DETECT); Parainfluenza Virus 3 Not Detected (NOT DETECT); Parainfluenza Virus 4 Not Detected (NOT DETECT); Respiratory Syncytial Virus Not Detected (NOT DETECT); SARS-Cov-2 (COVID-19), BioFire Not Detected (NOT DETECT)
--- NOTE | 2024-05-15 17:36 | NUR ---
ARRIVED TO ICU AROUND 1300. SHE WAS ON NC AND TOLERATED THE TRANSFER WELL. SHE WAS PLACED ON BIPAP, SHE WAS PUT IN A GOWN AND INSPECTION DONE. PT CONTINUES WITH LEFT TEMPORAL AREA ECCHYMOTIC AREA FROM FALL IN . BILATERAL KNEES PURPLE IN COLOR FROM SAME FALL. LEFT HIP INCISION C/D/I, HEALING WELL. PT ABLE TO ASSIST WITH MOVEMENT. BP STABLE, ABLE TO GET BIOX ON BIPAP 100%. PT IS ABLE TO ANSWER SIMPLE QUESTIONS. DAUGHTER COMES IN, ADMISSION COMPLETED, REACHED OUT TO IN REGARDS TO LACTIC ACID, ORDERS RECEIVED AND COMPLETED. PT ON IV HEPARIN GTT, MANAGED BY PHARMACY. 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 LIVES WITH DAUGHTER AND SON IN [place] BUT CURRENTLY HAS BEEN RESIDING IN [facility] RELATED TO HIP REPLACEMENT LAST MONTH. SHE IS ABLE TO COMMUNICATE AND MAKE HER NEEDS KNOWN. PUREWICK IS IN PLACE, PT HAS NOT URINATED YET. DAUGHTER STATES THAT SHE HAS NOT BEEN TAKING IN MUCH NUTRITION, STATED THAT PRIOR TO THE FALL LAST MONTH SHE HARDLY ATE MUCH ANYWAY. SHE HAS BEEN TRANSITIONED TO NC @ 4L AND HAS BEEN DOING WELL WITH THAT. SHE HAS PINKED UP SOME AND HER FINGERS AND TOES ARE LESS COOL. HER LEFT ANKLE IS SLIGHTLY EDEMATOUS COMPARED TO THE RIGHT. PT IS PCU STATUS.
--- NOTE | 2024-05-15 18:38 | NUR ---
LATE ENTRY: LEFT FOREARM DRESSING REMOVED AND SKIN ASSESSED. AREA OF SKIN TEAR IS LARGE AND REMAINS SUTURED. PICTURES TAKEN. REDRESSED.
--- NOTE | 2024-05-15 19:00 | NUR ---
ASSUMED CARE OF PATIENT AT 1900. REPORT RECEIVED FROM KAREL YANEZ. PT RESTING IN BED WITH FAMILY AT BEDSIDE. CONTINOUS CARDIAC MONITORING IN PLACE SHOWS SR WITH HR OF 78. BP 129/45. ON 3LPM O2 VIA NC WITH O2 SATURATION OF 100%. PUREWICK IN PLACE WITH NO URINE OUT AT THIS TIME. DRESSING TO LFA VISUALIZED COVERING SKIN TEAR PER DAY SHIFT NURSE. C/D/I. HEPARIN INFUSING AT 14 U/KG/HR. SEE SHIFT ASSESSMENT FOR FULL DETAILS.
[2024-05-16] VITALS (26 sets, daily range): BP systolic 135–196; BP diastolic 44–143
[2024-05-16 01:06] LABS: BASOPHILS ABSOLUTE AUTO 0.03 K/mm3 (0.00-0.23); BASOPHILS PERCENT AUTO 1 % (0-2); EOSINOPHILS ABSOLUTE AUTO 0.08 K/mm3 (0.00-0.68); EOSINOPHILS PERCENT AUTO 2 % (0-6); Hemoglobin 7.4 g/dL (11.5-16.0); IMMATURE GRAN ABSOLUTE AUTO 0.02 K/mm3 (0.00-0.10); IMMATURE GRAN PERCENT AUTO 0 % (0-1); LYMPHOCYTES ABSOLUTE AUTO 1.45 K/mm3 (0.84-5.20); LYMPHOCYTES PERCENT AUTO 28 % (21-46); MONOCYTES ABSOLUTE AUTO 0.73 K/mm3 (0.16-1.47); MONOCYTES PERCENT AUTO 14 % (4-13); Mean Corpuscular HGB 27.7 pg (26.0-34.0); Mean Corpuscular HGB Conc 30.8 g/dL (31.5-36.5); Mean Corpuscular Volume 90 fL (80-100); Mean Platelet Volume 11.3 fL (9.1-12.4); NEUTROPHILS ABSOLUTE AUTO 2.93 K/mm3 (1.96-9.15); NEUTROPHILS PERCENT AUTO 56 % (41-73); Platelet Count 128 K/mm3 (150-400); RDW Standard Deviation 51.7 fL (35.1-46.3); Red Blood Cell Count 2.67 M/mm3 (3.80-5.20); White Blood Cell Count 5.24 K/mm3 (4.00-11.30)
[2024-05-16 01:10] LABS: Anti-Xa UFH, PHA Monitoring 0.67 IU/mL; International Normalized Ratio 1.1; Prothrombin Time Results 11.7 Sec (9.7-11.5)
[2024-05-16 01:14] LABS: Albumin, Blood 2.6 g/dL (3.4-5.0); Bilirubin, Total 0.5 mg/dL (0.1-1.0); Bun/Creatinine Ratio 17.1 (12.0-20.0); Calcium, Blood 8.4 mg/dL (8.5-10.1); Creatinine, Blood 1.52 mg/dL (0.40-1.00); Globulin, Blood 2.5 g/dL (2.2-4.0); Potassium, Blood 3.4 mmol/L (3.5-5.5); Total Protein, Blood 5.1 g/dL (6.4-8.2)
[2024-05-16] MEDS ORDERED: Potassium Chloride 40 MEQ IV SCH (01:35)
[2024-05-16] MEDS ORDERED: Potassium Chl 20MEQ/Water100ML 100 ML IV SCH (01:40)
[2024-05-16] MEDS ORDERED: Clarify Drug Order XX ONE (01:50)
[2024-05-16] MEDS ORDERED: Potassium Chloride 20 MEQ TabCR PO ONE (02:15)
[2024-05-16] MEDS ORDERED: Furosemide 10 MG/ML 4ML Vial ONE (05:01)
[2024-05-16] MEDS ORDERED: Furosemide 10 MG/ML 4ML Vial IV ONE (05:05)
[2024-05-16] MEDS ORDERED: HydrALAZINE HCl 20 MG / ML 1ML Vial IV SCH (06:00)
[2024-05-16] MEDS ORDERED: Levothyroxine Sodium 0.05 MG Tab PO SCH (06:00)
[2024-05-16] MEDS ORDERED: HydrALAZINE HCl 20 MG / ML 1ML Vial IV PRN (06:10)
--- NOTE | 2024-05-16 06:40 | NUR ---
BLOOD TRANSFUSION DISCONTINUED AT APPROXIMATELY 0500 PT CALLED NURSE IN AND STATED THAT SHE WAS EXPERIENCING SHORTNESS OF BREATH. BP AND HR WERE ELEVATED AND PT WAS GRABBING THE HANDRAILS OF HER BED, STRUGGLING TO BREATHE. CRACKLES HEARD T/O. LASIX ORDERED AND ADMINISTERED PER HOSPITALIST. BIPAP PLACED, INCREASED TO SETTINGS OF 14/8. BLOOD TRANSFUSION DISCONTINUED AT THIS TIME. SEE TRANSFUSION HX.
--- NOTE | 2024-05-16 07:12 | NUR ---
SHIFT SUMMARY PT REMAINED ALERT AND ORIENTED T/O ENTIRETY OF SHIFT. ABLE TO FOLLOW COMMANDS, MAKE PURPOSEFUL MOVEMENTS, AND MAKE NEEDS KNOWN. AFEBRILE AND DENIES PAIN. CONTINOUS CARDIAC MONITORING SHOWED SR WITH HR IN 70-80'S, BP STABLE. ON 3LPM O2 VIA NC WITH O2 SATURATIONS > 92%. NO BM THIS SHIFT. PUREWICK IN PLACE WITH NO URINE OUT UNTIL APPROXIMATELY 0400. DRESSING TO LFA S/P FALL IN REMAINS C/D/I. BRUISING TO BILATERAL KNEES AND L TEMPORAL S/P FALL IN . 0100 LABS SHOWED HGB DROPPED FROM 9.5 TO 7.4. 1 UNIT PRBC'S ORDERED PER HOSPITALIST. AT APPROXIMATELY 0500 PT DEVELOPED SEVERE SOB AND TRANSUFION WAS STOPPED (SEE NOTE). BIPAP PLACED AT 14/8 WITH 3LPM O2 BLEED IN. HEPARIN REMAINS INFUSING AT 14 U/KG/HR. POTASSIUM REPLACED THIS SHIFT.
[2024-05-16] MEDS ORDERED: Cholecalciferol 1000 Unit Tablet (=25MCG) PO SCH (09:00)
[2024-05-16] MEDS ORDERED: Heparin Sodium,Porcine 5,000 UNIT/0.5 ML SDV SC SCH (09:00)
[2024-05-16] MEDS ORDERED: Metoprolol Succinate 50 MG TABCR PO SCH (09:00)
[2024-05-16] MEDS ORDERED: Famotidine 10 MG/ML 2ML Vial IV SCH (09:00)
[2024-05-16] MEDS ORDERED: Losartan Potassium 50 MG Tab PO SCH (09:00)
[2024-05-16] MEDS ORDERED: Aspirin 81 MG Chew PO SCH (09:00)
[2024-05-16 11:49] LABS: Source, Urine Clean Catch
--- NOTE | 2024-05-16 11:52 | NUR ---
AM NOTE... ASSUMED CARE OF PT AT 0700, PT IS A&Ox4 BUT WILL MIX UP HER "YES AND NO" ANSWERS. PT WAS ON BIPAP AT 14/8 WITH A 3L BLEED IN AT THE START OF THIS SHIFT THIS WAS CHANGED OVER TO NC AT 3L WHICH WAS TITRATED DOWN TO 2L NC WITH O2 SATS>92% L/S DIM T/O. SHE IS IN SR IN THE 90'S BP IS HYPERTENSIVE ORAL MEDS GIVEN PER EMAR. PURWICK IS IN PLACE, A CLEAN CATCH UA WAS SENT TO THE LAB WHEN THE PURWICK WAS REPLACED BY THIS RN, EXTENSIVE MARK CARE WAS DONE AND PT WAS PLACED ON A BEDPAN TO GET THE URINE SAMPLE BEFORE THE PURWICK WAS REPLACED. THE PT BECAME SOB DURING THE TURNS AND MARK CARE ON AND OFF THE BEDPAN, RT WAS CALLED AND BREATHING TREATMENT WERE GIVEN WHICH IMPROVED HER WORK OF BREATHING AND SOB. DR. MCALLISTER WAS AT THE BEDSIDE THIS AM TO ASSESS THE PT, ORDERS TO D/C THE HEPARIN DRIP WERE GIVEN, THE DRIP WAS STOPPED AT THIS TIME. WILL CONTINUE TO MONITOR.
[2024-05-16 12:23] LABS: Appearance, Urine Clear (Clear); Bilirubin, Urine Neg (Neg); Blood, Urine 2+ (Neg); Glucose Qualitative, Urine Neg (Neg); Ketones, Urine Neg (Neg); Leukocyte Esterase, Urine Neg (Neg); Nitrite, Urine Neg (Neg); Protein, Urine Neg (Neg); Urobilinogen, Urine NORM (Normal)
[2024-05-16 12:34] LABS: Color, Urine Pale Yellow (P-Yellow)
[2024-05-16 12:35] LABS: Hyaline Casts 0-2 /lpf (0-2)
[2024-05-16 12:36] LABS: Amorphous Light (0-Heavy); Bacteria Rare /hpf; Squamous Epithelial Cells Rare /hpf (Few); White Blood Cells, Urine 0-2 /hpf (0-5)
--- NOTE | 2024-05-16 17:26 | NUR ---
SHIFT SUMMARY.... NO ACUTE NEGATIVE CHANGES NOTED THIS SHIFT. PT'S VS HAVE BEEN STABLE. PT HAS BEEN TURNED Q2HRS BUT SHIFTS HERSELF BACK TO SUPINE MOST OF THE TIME. PT EDUCATED ON PRESSURE ULCER PREVENTION BY THIS RN. PURWICK CONTINUES TO BE IN PLACE WITH APROX 2000MLS OUT THIS SHIFT. PT CONTINUES TO GET SOB WITH ACTIVITY AND ANXIETY WHICH IMPROVES WITH BREATHING TREATMENTS. PT HAS BEEN ON 2L NC MOST OF THIS SHIFT WITH O2 SATS>92%. OCCULT STOOL ORDERED. WILL CONTINUE TO MONITOR UNTIL REPORT IS GIVEN TO ONCOMING RN.
[2024-05-16] MEDS ORDERED: Atorvastatin 10 MG Tab PO SCH (23:00)
[2024-05-17] VITALS (9 sets, daily range): BP systolic 125–160; BP diastolic 47–64
[2024-05-17 03:02] LABS: BASOPHILS ABSOLUTE AUTO 0.04 K/mm3 (0.00-0.23); BASOPHILS PERCENT AUTO 1 % (0-2); EOSINOPHILS ABSOLUTE AUTO 0.24 K/mm3 (0.00-0.68); EOSINOPHILS PERCENT AUTO 3 % (0-6); Hematocrit 29.1 % (33.0-51.0); Hemoglobin 9.1 g/dL (11.5-16.0); IMMATURE GRAN ABSOLUTE AUTO 0.04 K/mm3 (0.00-0.10); IMMATURE GRAN PERCENT AUTO 1 % (0-1); LYMPHOCYTES ABSOLUTE AUTO 1.02 K/mm3 (0.84-5.20); LYMPHOCYTES PERCENT AUTO 14 % (21-46); MONOCYTES ABSOLUTE AUTO 1.13 K/mm3 (0.16-1.47); MONOCYTES PERCENT AUTO 15 % (4-13); Mean Corpuscular HGB 28.9 pg (26.0-34.0); Mean Corpuscular HGB Conc 31.3 g/dL (31.5-36.5); Mean Corpuscular Volume 92 fL (80-100); Mean Platelet Volume 11.2 fL (9.1-12.4); NEUTROPHILS ABSOLUTE AUTO 4.93 K/mm3 (1.96-9.15); NEUTROPHILS PERCENT AUTO 67 % (41-73); Platelet Count 146 K/mm3 (150-400); RDW Coefficient Variation 16.3 % (11.7-14.2); RDW Standard Deviation 53.9 fL (35.1-46.3); Red Blood Cell Count 3.15 M/mm3 (3.80-5.20)
[2024-05-17 03:25] LABS: Alanine Aminotransfer (ALT/SGP 16 U/L (12-78); Albumin, Blood 2.8 g/dL (3.4-5.0); Alk Phos 110 U/L (50-136); Anion Gap 11 mmol/L (3-11); Aspartate Aminotrans (AST/SGOT 32 U/L (12-37); Bilirubin, Total 0.8 mg/dL (0.1-1.0); Blood Urea Nitrogen 26 mg/dL (8-24); Bun/Creatinine Ratio 15.4 (12.0-20.0); CO2, Blood 29 mmol/L (21-32); Calcium, Blood 8.5 mg/dL (8.5-10.1); Chloride, Blood 107 mmol/L (98-108); Cholesterol 130 mg/dL (50-200); Creatinine, Blood 1.69 mg/dL (0.40-1.00); Globulin, Blood 2.9 g/dL (2.2-4.0); Glomerular Filtration Rate 29 (60-); Glucose, Blood 102 mg/dL (70-99); HDL Cholesterol 65 mg/dL (>39); LDL/HDL RATIO 0.7; Low Density Lipoprotein Chol 49 mg/dL (0-110); Potassium, Blood 3.4 mmol/L (3.5-5.5); Sodium, Blood 144 mmol/L (136-145); Total Protein, Blood 5.7 g/dL (6.4-8.2); Triglycerides 82 mg/dL (30-160); Very Low Density Lipoprot Chol 16 mg/dL (6-32)
--- NOTE | 2024-05-17 07:10 | NUR ---
SHIFT SUMMERY PT IS ALERT AND ORIENTED W/SOME EXPRESSIVE APHASIA AT TIMES. SHE HAS BEEN SR ON THE [employer] W/BP WNL. SHE HAS BEEN ON 2L NC, OXYGEN SAT >92%. PUREWICK IN PLACE, NO BM. PT DOES HAVE ANXIETY WHEN BEING REPOSITIONED AND IS SOB W/ACTIVITY. PT HAS HAD NO ACUTE CHANGES OVERNIGHT.
[2024-05-17] MEDS ORDERED: Potassium Chl 20MEQ/Water100ML 100 ML IV STA (07:42)
[2024-05-17] MEDS ORDERED: Furosemide 10 MG / ML 2ML Vial IV SCH (09:00)
[2024-05-17] MEDS ORDERED: Potassium Chloride 20 MEQ TabCR PO SCH (13:00)
[2024-05-17] MEDS ORDERED: Albuterol 2.5 MG/3 ML VIAL INH SCH (16:05)
--- NOTE | 2024-05-17 16:57 | NUR ---
SHIFT SUMMARY... NO ACUTE NEGATIVE CHANGES NOTED THIS SHIFT. PT WORKED WITH PT/OT AND WAS UP IN THE CHAIR FOR SEVERAL HOURS. PT WAS INCONT OF URINE THIS SHIFT. PURWICK IN PLACE TO LIS. PT'S VS STABLE. PT GETS SOB AND ANXIOUS WITH ACTIVITY BUT WILL RECOVER WITH TIME AND ENCOURAGEMENT. PT'S DAUGHTER AT THE BEDSIDE T/O THIS SHIFT. REPORT GIVEN TO JERRY VINSON ON MEDICAL FLOOR.
--- NOTE | 2024-05-17 18:41 | NUR ---
SHIFT SUMMARY PT TRANSFERED FROM ICU 11 AROUND 180O THIS SHIFT WITH DAUGHTER AT BEDSIDE. PT NOTED TO BE A&O TO SELF AND PLACE. PT NOTED TO HAVE EXPRESSIVE APHASIA. HX MOSTLY OBTAINED FROM DAUGHTER. DAUGHTER STATED THAT THEY ARE WANTING TO TALK TO PALLATIVE CARE TOMORROW MORNING TO DISCUSS POSSIBLE HOSPICE AND COMFORT CARES FOR PT SHE HAS HAD A SIGNIFICANT DECLINE. PT NOTED TO BE ON 2L/NC AND DAUGHTER STATED TO THIS NURSE THATS PT BASELINE. PT HAS PURWICK IN PLACE FOR INCONT. [facility]. PT IS ASSIST X1 WITH FWW WITH TRANSFERS. PT HAS SKIN TEAR TO L FOREARM DSG CDI.
[2024-05-18 04:01] VITALS: BP 160/77
[2024-05-18] MEDS ORDERED: Furosemide 10 MG/ML 4ML Vial IV ONE (04:35)
--- NOTE | 2024-05-18 06:41 | NUR ---
SINGLE SPINDLE SCREW MACHINE OPERATOR SUMMARY. PT WAKEFUL AND RESTLESS T/O THE NIGHT. C/O OF NOT BEING ABLE TO BREATH. CALL RT TO BEDSIDE X2 T/O THE NIGHT. PT DEVELOPED COARSE AND FINE CRACKLES IN RIGHT LOBES AND LOWER LEFT. CALL TO HOSPITALIST--NEW ORDER FOR 1X DOSE LASIX 40MG. RT PLACED PT ON BIPAP WITH CONT BIOX. AFTER BIPAP PLACED, PT WAS ABLE TO SLEEP MORE RESTFUL.
[2024-05-18 07:50] VITALS: BP 159/66
[2024-05-18 14:49] VITALS: BP 155/60
--- NOTE | 2024-05-18 14:58 | NUR ---
GOALS OF CARE: D/C HOME WITH HOSPICE MET WITH PT'S DTR & TODD THIS MORNING. PT IS NOT RESPONDING WELL TO SKILLED TX. MINIMAL PO INTAKE. CONTINUED WEAKNESS. PLAN IS FOR PT TO CONTINUE WITH TREATMENT UNTIL D/C HOME. CONTINUE IV MEDICATIONS, UNLESS IV ACCESS IS LOST. IF IV ACCESS IS LOST, MAY LEAVE IV OUT AND DISCONTINUE IV MEDICATIONS PER . UPDATE PROVIDED TO PRIMARY RN AND MANAGER GAMES. PC TO REMAIN AVAILABLE NEEDED.
[2024-05-18] MEDS ORDERED: LORazepam 0.5 MG Tab PO PRN (15:15)
--- NOTE | 2024-05-18 18:24 | NUR ---
SHIFT SUMMARY PT CONT LEVEL OF CARE. PT REMAINS A&O TO SELF AND PLACE. NOTED EXPRESSIVE APHASIA. PT ISS ASSIST X1 WITH FWW AND GAITBELT TO CHAIR THIS SHIFT. PLAN IS FOR PT TO GO HOME ON HOSPICE.
[2024-05-18 20:07] VITALS: BP 159/69
[2024-05-19 03:32] VITALS: BP 163/77
[2024-05-19 05:50] VITALS: BP 159/60
--- NOTE | 2024-05-19 06:39 | NUR ---
COILER SUMMARY NO ACUTE CHANGES. PT ALERT AND ORIENTED TO SELF. EXPRESIVE APHASIA; PT MIXES YES/NO UP. PT REPOSITIONED AND CHANGED IN REGULAR INTERVALS. PT ON BIPAP T/O THE NIGHT; THE PT TOLERATED BIPAP WELL. SHE SLEPT BETTER THAN THE PREVIOUS NIGHT. NOTE IMPROVEMENT WITH AFFECT AND IMPROVED ANXIETY. NOTED FINE CRACKLES IN BASE OF LUNGS. PT SOB WITH ACTIVITY. CONT BIOX IN PLACE.
[2024-05-19 07:36] VITALS: BP 155/54
[2024-05-19] MEDS ORDERED: Piperacillin/Tazobactam Sod 2.25 GM in NS 50 ML IV SCH (08:00)
--- NOTE | 2024-05-19 13:52 | NUR ---
PT DISCHARGED ON HOME HOSPICE. TRANSPORTED BY AMBULANCE. [facility] FROM HOME HOSPICE UPDATED ON TRANSPORT TIME. PT ALERT TO SELF. COOPERATIVE. 2L NC. ALL BELONGINGS WITH PT.
== END 2024-05-19 13:52 | disposition hospice, home (50) | DRG 871 ==
LOC: ER 08:44 → PCU 08:45 → ICUE 12:36 → MEDS 14:00 → ICUE 14:00 → MEDS 05-17 17:53
PROVIDERS: Emergency Medicine; ADMIT Internal Medicine
PROC: 5A09557 Assistance with Respiratory Ventilation, Greater than 96 Consecutive Hours, Continuous Positive Airway Pressure (ICD-10-PCS; principal; 2024-05-15)
PROC: 3E03329 Introduction of Other Anti-infective into Peripheral Vein, Percutaneous Approach (ICD-10-PCS; 2024-05-15)
PROC: 30233N1 Transfusion of Nonautologous Red Blood Cells into Peripheral Vein, Percutaneous Approach (ICD-10-PCS; 2024-05-16)
DX: A41.9 Sepsis, unspecified organism (principal); G93.41 Metabolic encephalopathy; J18.9 Pneumonia, unspecified organism; J96.21 Acute and chronic respiratory failure with hypoxia; J96.22 Acute and chronic respiratory failure with hypercapnia; I50.31 Acute diastolic (congestive) heart failure; I21.A1 Myocardial infarction type 2; J44.0 Chronic obstructive pulmonary disease with (acute) lower respiratory infection; J44.1 Chronic obstructive pulmonary disease with (acute) exacerbation; I13.0 Hypertensive heart and chronic kidney disease with heart failure and stage 1 through stage 4 chronic kidney disease, or unspecified chronic kidney disease; D62 Acute posthemorrhagic anemia; Z51.5 Encounter for palliative care; Z66 Do not resuscitate; I27.20 Pulmonary hypertension, unspecified; D63.1 Anemia in chronic kidney disease; D69.6 Thrombocytopenia, unspecified; N18.30 Chronic kidney disease, stage 3 unspecified; I48.91 Unspecified atrial fibrillation; E78.5 Hyperlipidemia, unspecified; F03.90 Unspecified dementia, unspecified severity, without behavioral disturbance, psychotic disturbance, mood disturbance, and anxiety; E03.9 Hypothyroidism, unspecified; E87.6 Hypokalemia; I45.10 Unspecified right bundle-branch block; Z86.73 Personal history of transient ischemic attack (TIA), and cerebral infarction without residual deficits; Z87.81 Personal history of (healed) traumatic fracture; Z79.82 Long term (current) use of aspirin; Z79.890 Hormone replacement therapy; Z79.899 Other long term (current) drug therapy; Z87.440 Personal history of urinary (tract) infections; Z79.891 Long term (current) use of opiate analgesic
CPT/HCPCS: 0202U; 36415; 36430; 71045; 71260; 80053; 80061; 81001; 82803; 83605; 83735; 83880; 84484; 85025; 85520; 85610; 85730; 86850; 86900; 86901; 86923; 87040; 93005; 93010; 93306; 94640; 94660; 94664; 94762; 96365-59; 96366; 96367; 96368; 96376-59; 97162; 97530; 99285-25; A9270; G0378; J0360; J0456; J0696; J1644; J1940; J2543; J3480; J7050; P9016; Q9967